=== PATIENT | male | born 1960 | race Caucasian/White ===

== ENCOUNTER 2018-04-02 17:19 | Emergency (ER) | payer MEDICAID ==
[~2018-04-02] VITALS: Ht 175.3 cm; Wt 79.4 kg
[2018-04-02] MEDS ORDERED: INCARCERATION (18:47)
== END 2018-04-02 18:59 | disposition home or self-care (01) ==
LOC: ER 17:19
DX: F10.129 Alcohol abuse with intoxication, unspecified (principal); F17.210 Nicotine dependence, cigarettes, uncomplicated
CPT/HCPCS: 82947; 93005; 93010; 99284-25